=== PATIENT | male | born 1995 | race Two or more races ===

== ENCOUNTER 2021-05-14 00:40 | Emergency (ER) | payer MEDICAID, OTHER ==
[~2021-05-14] VITALS: Ht 167.6 cm; Wt 90.7 kg
[2021-05-14 00:40] VITALS: BP 129/79
[~2021-05-14 00:40] MED LIST: ACET-1079
== END 2021-05-14 06:22 | disposition left against medical advice (07) ==
LOC: ER 00:40
DX: M25.562 Pain in left knee (principal); Z53.21 Procedure and treatment not carried out due to patient leaving prior to being seen by health care provider

== ENCOUNTER 2024-04-07 22:07 | Emergency (ER) | payer MEDICAID, OTHER ==
[~2024-04-07] VITALS: Ht 170.2 cm; Wt 100.0 kg
[2024-04-08] MEDS: IBUPROFEN 800 MG TAB PO ONE (02:49)
[2024-04-08 02:57] VITALS: BP 132/78; PULSE 89; RESP 18; TEMP 98.7; O2SAT 99
== END 2024-04-08 03:00 | disposition home or self-care (01) ==
LOC: ER 22:07
DX: M25.511 Pain in right shoulder (principal); Z79.899 Other long term (current) drug therapy; W18.39XA Other fall on same level, initial encounter; Y93.67 Activity, basketball; Y92.89 Other specified places as the place of occurrence of the external cause; Y99.8 Other external cause status
CPT/HCPCS: 73030